=== PATIENT | female | born 1965 | race African-American/Black ===

== ENCOUNTER 2021-11-03 21:28 | Emergency (ER) | payer SELFPAY ==
[~2021-11-03] VITALS: Ht 167.6 cm; Wt 95.0 kg
[2021-11-03 21:39] VITALS: BP 188/98
[2021-11-03] MEDS ORDERED: HYDROCHLOROTHIAZIDE 25MG TABLET PO ONE (23:00)
== END 2021-11-04 01:48 | disposition home or self-care (01) ==
LOC: ER 21:28
DX: I10 Essential (primary) hypertension (principal); R51.9 Headache, unspecified; R42 Dizziness and giddiness
CPT/HCPCS: 93005; 99283